=== PATIENT | male | born 1945 | race Two or more races ===

== ENCOUNTER 2017-10-30 09:30 | Inpatient (IN) | payer MEDICARE, MEDICAID ==
[2017-10-23 14:16] LABS: BASOPHILS % (AUTO) 0.5 % (0-1); EOSINOPHILS # (AUTO) 0.1 X10'3 (0-0.9); EOSINOPHILS % (AUTO) 1.7 % (0-6); LYMPHOCYTES # (AUTO) 2.3 X10'3 (1.1-4.8); MEAN CORPUSCULAR HEMOGLOBIN 29.7 PG (27.0-31.0); MEAN CORPUSCULAR HGB CONC 33.4 % (33.0-36.5); MEAN CORPUSCULAR VOLUME 88.9 FL (78-98); MEAN PLATELET VOLUME 8.2 FL (7.4-10.4); MONOCYTES # (AUTO) 0.8 X10'3 (0-0.9); MONOCYTES % (AUTO) 10.8 % (2-12); NEUTROPHILS # (AUTO) 4.1 X10'3 (1.8-7.7); PRE OP PLATELET COUNT 239 X10'3 (140-440); RED BLOOD COUNT 4.39 X10'6 (4.70-6.10); RED CELL DISTRIBUTION WIDTH 14.6 % (11.5-14.5)
[2017-10-23 14:23] LABS: CLARITY,URINE Clear (Clear); COLOR,URINE Yellow (Yellow); GLUCOSE, URINE Negative (Neg); KETONES,URINE Negative (Neg); LEUKOCYTE ESTERASE ,URINE Negative (Neg); NITRITES, URINE Negative (Neg); OCCULT BLOOD,URINE Negative (Neg); PROTEIN,URINE Trace mg/dl (Neg); UROBILINOGEN,URINE 0.2 E.U/dL (0.2-1.0)
[2017-10-23 14:25] LABS: UA COLLECTION TYPE NON-SPECIFIED
[2017-10-23 14:27] LABS: PRE OP PROTIME 9.9 SECONDS (9.0-12.0)
[2017-10-23 14:32] LABS: ALBUMIN/GLOBULIN RATIO 0.6 (1.1-1.5); ALKALINE PHOSPHATASE 102 IU/L (46-116); BLOOD UREA NITROGEN 24 MG/DL (7-18); BUN/CREATININE RATIO 28.9 (5.4-32.0); CALCIUM 8.7 MG/DL (8.5-10.1); CHLORIDE 104 MMOL/L (99-107); CREATININE 0.83 MG/DL (0.60-1.10); PRE OP ALT 20 U/L (30-65); PRE OP ANION GAP 7 (8-16); PRE OP AST 16 U/L (10-37); PRE OP BILIRUB, TOTAL 0.1 MG/DL (0.0-1.0); PRE OP GLUCOSE 107 MG/DL (70-104); PRE OP POTASSIUM 3.9 MMOL/L (3.4-5.1); PRE OP SODIUM 136 MMOL/L (135-145); TOTAL CARBON DIOXIDE 25.3 MMOL/L (24-32); TOTAL PROTEIN 7.8 G/DL (6.4-8.2); eGFR > 90 ML/MIN
[2017-10-23 14:55] LABS: SQUAMOUS EPITHELIAL CELL,UR FEW /LPF (FEW); URIC ACID CRYSTALS FEW /HPF (NEGATIVE)
[2017-10-23 14:57] LABS: BACTERIA,URINE NONE SEEN /HPF (Neg); RBC,URINE NONE SEEN /HPF (0-2); WBC,URINE 0-4 /HPF (0-4)
[~2017-10-30] VITALS: Ht 172.7 cm; Wt 97.2 kg
[~2017-10-30 09:30] MED LIST: ASPI-529 PO; CELE-85 PO; FLO0.4C PO; HYDR-3965 PO; OMEP20TA5 PO
[2017-11-01] VITALS (19 sets, daily range): BP systolic 106–152; BP diastolic 56–93
[2017-11-01] MEDS ORDERED: ringers solution, lacted 1,000 ML IV SCH ×2 (05:00→17:33)
[2017-11-01] MEDS ORDERED: Cefazolin 2GM/50ML dext iso,osmotic IVPB IV ONE (05:30)
[2017-11-01] MEDS ORDERED: acetaminophen 325mg tablet PO ONE (05:30)
[2017-11-01] MEDS ORDERED: famotidine 20mg tablet PO ONE (05:30)
[2017-11-01] MEDS ORDERED: metoclopramide 5 mg/ml inj IV ONE (05:30)
[2017-11-01] MEDS ORDERED: celeCOXIB 100mg capsule PO ONE (05:30)
[2017-11-01] MEDS ORDERED: oxyCODONE SR 10mg (sust. release) tab PO ONE (05:30)
[2017-11-01] MEDS ORDERED: gabapentin 300mg capsule PO ONE (05:30)
[2017-11-01] MEDS ORDERED: vancomycin inj 1,500 MG in normal saline 300ml IV soln IV ONE (05:30)
[2017-11-01] MEDS ORDERED: tranexamic acid inj. 1,000 MG in normal saline 100ml IV soln 90 ML IV ONE (05:30)
[2017-11-01] MEDS ORDERED: acetaminophen 325mg tablet PO PRN (07:20)
[2017-11-01] MEDS ORDERED: oxyCODONE IR 5mg (immed. release) tablet PO PRN (07:20)
[2017-11-01] MEDS ORDERED: diphenhydrAMINE 25mg capsule PO PRN ×2 (07:20)
[2017-11-01] MEDS ORDERED: HYDROmorphone inj. 0.5 MG/0.5 ML DISP.SYRIN IV PRN ×4 (07:20→17:35)
[2017-11-01] MEDS ORDERED: bisacodyl 10mg suppository rectal RC PRN (07:20)
[2017-11-01] MEDS ORDERED: magnesium hydroxide 30ml (MOM) UD suspension PO PRN (07:20)
[2017-11-01] MEDS: aspirin 325mg tablet PO SCH (08:30)
[2017-11-01] MEDS ORDERED: heparin 10,000 units/1 ML INJ ONE (11:08)
[2017-11-01] MEDS ORDERED: ketorolac trometh. 30mg/ml inj. ONE (11:08)
[2017-11-01] MEDS ORDERED: vancomycin 1,000mg inj ONE (11:08)
[2017-11-01] MEDS ORDERED: glycopyrrolate 0.2mg/ml inj ONE (12:32)
[2017-11-01] MEDS ORDERED: sevoflurane 250ml liquid IH ONE (12:32)
[2017-11-01] MEDS ORDERED: ondansetron/PF 4mg/2ml inj ONE (12:32)
[2017-11-01] MEDS ORDERED: diphenhydrAMINE 50 mg/ml inj ONE (12:32)
[2017-11-01] MEDS ORDERED: tetracaine 1% (10mg/ml) pres. free inj. ONE (12:35)
[2017-11-01] MEDS ORDERED: fentaNYL/PF 50MCG/1 ML 2ML syringe ONE (12:38)
[2017-11-01] MEDS ORDERED: morphine /PF 1mg/ml 10ml inj. ONE (12:38)
[2017-11-01] MEDS ORDERED: MIDAZolam 5mg/5ml vial ONE (12:40)
[2017-11-01] MEDS ORDERED: epiNEPHrine 1 mg/ml inj ONE (13:13)
[2017-11-01] MEDS ORDERED: ROPIVAcaine 0.5% (5mg/ml) 30ml vial ONE ×2 (13:13→13:41)
[2017-11-01] MEDS ORDERED: cloNIDine hcl/PF 100mcg/ml inj ONE (13:13)
[2017-11-01] MEDS ORDERED: BUPIVAcaine/PF 2.5mg/ml (0.25%) 10ml vial ONE (13:37)
[2017-11-01] MEDS ORDERED: furosemide 40mg/4ml inj ONE (15:16)
[2017-11-01] MEDS ORDERED: propofol inj 40 ML IV ONE (15:17)
[2017-11-01] MEDS ORDERED: LIDOcaine 1%/PF 5ML 10 MG/ML VIAL ONE (15:17)
[2017-11-01] MEDS ORDERED: gelatin sponge, absorbable (Gelfoam 100) sponge TP ONE (16:00)
[2017-11-01] MEDS ORDERED: ceFAZolin 1000mg inj ONE (16:38)
[2017-11-01] MEDS ORDERED: naloxone 2mg/2ml inj 2 MG in normal saline 500ml IV soln 500 ML IV PRN (17:33)
[2017-11-01] MEDS ORDERED: diphenhydrAMINE 50 mg/ml inj IV PRN (17:35)
[2017-11-01] MEDS ORDERED: morphine 4 MG/ML inj SYRINge IV PRN (17:35)
[2017-11-01] MEDS ORDERED: ondansetron/PF 4mg/2ml inj IV PRN ×2 (17:35)
[2017-11-01 17:45] LABS: ISTAT ANION GAP 11 (8-12); ISTAT BUN 21 mg/dL (6-19); ISTAT CL 103 mmol/L (99-107); ISTAT CREATININE 0.8 mg/dL (0.8-1.3); ISTAT GLUCOSE 88 mg/dL (70-104); ISTAT HGB 11.6 g/dl (14.0-18.0); ISTAT Hct 34 %PCV (42-52); ISTAT K 4.7 mmol/L (3.5-5.1); ISTAT NA 141 mmol/L (135-145); ISTAT TOTAL CO2 27 mmol/L (24-32); ISTAT eGFR > 90 ML/MIN; POC BUN/CREATININE RATIO 26.3 (5.4-32.0)
[2017-11-01] MEDS: potassium cl 20mEq in 1/2 NS 1,000 ML IV SCH ×2 (20:25→23:16)
[2017-11-01] MEDS: acetaminophen 325mg tablet PO SCH (20:27)
[2017-11-01] MEDS: oxyCODONE IR 5mg (immed. release) tablet PO PRN (20:27)
[2017-11-01] MEDS: gabapentin 300mg capsule PO SCH (20:28)
[2017-11-01] MEDS: ascorbic acid 500mg tablet PO SCH (20:28)
[2017-11-01] MEDS: sennosides 8.6mg tablet PO SCH (20:29)
[2017-11-01] MEDS: multivitamins, therapeutics tablet PO SCH (21:27)
[2017-11-01] MEDS: cefazolin/dext.iso 2gm/50ml 50 ML IV SCH ×3 (21:28→23:46)
[2017-11-02] MEDS: acetaminophen 325mg tablet PO SCH ×4 (01:48→19:31)
[2017-11-02 02:30] VITALS: BP 105/52
[2017-11-02 05:20] LABS: BASOPHILS % (AUTO) 0.4 % (0-1); EOSINOPHILS # (AUTO) 0.2 X10'3 (0-0.9); EOSINOPHILS % (AUTO) 1.6 % (0-6); HEMATOCRIT 29.8 % (42.0-52.0); HEMOGLOBIN 9.9 g/dl (14.0-17.9); LYMPHOCYTES # (AUTO) 1.3 X10'3 (1.1-4.8); LYMPHOCYTES % (AUTO) 12.6 % (21-51); MEAN CORPUSCULAR HEMOGLOBIN 29.9 PG (27.0-31.0); MEAN CORPUSCULAR HGB CONC 33.4 % (33.0-36.5); MEAN CORPUSCULAR VOLUME 89.6 FL (78-98); MEAN PLATELET VOLUME 8.3 FL (7.4-10.4); MONOCYTES # (AUTO) 0.8 X10'3 (0-0.9); MONOCYTES % (AUTO) 7.7 % (2-12); NEUTROPHILS # (AUTO) 7.9 X10'3 (1.8-7.7); NEUTROPHILS % (AUTO) 77.7 % (42-75); PLATELET COUNT 173 X10'3 (140-440); RED BLOOD COUNT 3.32 X10'6 (4.70-6.10); RED CELL DISTRIBUTION WIDTH 14.5 % (11.5-14.5); WHITE BLOOD COUNT 10.1 X10'3 (4.5-11.0)
[2017-11-02] MEDS: oxyCODONE IR 5mg (immed. release) tablet PO PRN ×4 (05:20→17:25)
[2017-11-02 05:46] LABS: ANION GAP 5 (8-16); CHLORIDE 105 MMOL/L (99-107); POTASSIUM 4.6 MMOL/L (3.5-5.1); SODIUM 136 MMOL/L (135-145); TOTAL CARBON DIOXIDE 25.9 MMOL/L (24-32)
[2017-11-02 06:00] VITALS: BP 106/51
[2017-11-02] MEDS: tamsulosin 0.4mg capsule PO SCH (07:30)
[2017-11-02] MEDS: potassium cl 20mEq in 1/2 NS 1,000 ML IV SCH ×2 (07:30→15:16)
[2017-11-02] MEDS: cefazolin/dext.iso 2gm/50ml 50 ML IV SCH (07:30)
[2017-11-02] MEDS: ascorbic acid 500mg tablet PO SCH ×2 (07:30→19:31)
[2017-11-02] MEDS: pantoprazole 40mg Tablet.DR PO SCH (07:30)
[2017-11-02] MEDS: multivitamins, therapeutics tablet PO SCH (07:31)
[2017-11-02] MEDS: gabapentin 300mg capsule PO SCH ×3 (07:31→21:19)
[2017-11-02] MEDS: aspirin 325mg tablet PO SCH (07:32)
[2017-11-02 10:02] VITALS: BP 97/49
[2017-11-02] MEDS ORDERED: HYDROmorphone 1 mg/ml syringe ONE (10:09)
[2017-11-02] MEDS: mag hydrox/Alum hydrox/simeth 30ml oral suspension PO PRN (11:48)
[2017-11-02 14:00] VITALS: BP 110/47
[2017-11-02 18:00] VITALS: BP 119/53
[2017-11-02] MEDS: sennosides 8.6mg tablet PO SCH (21:19)
[2017-11-02 22:00] VITALS: BP 134/35
[2017-11-03] MEDS: acetaminophen 325mg tablet PO SCH (02:44)
[2017-11-03 05:46] LABS: BASOPHILS % (AUTO) 0.3 % (0-1); EOSINOPHILS # (AUTO) 0.2 X10'3 (0-0.9); EOSINOPHILS % (AUTO) 1.9 % (0-6); HEMATOCRIT 29.2 % (42.0-52.0); HEMOGLOBIN 9.9 g/dl (14.0-17.9); LYMPHOCYTES # (AUTO) 1.4 X10'3 (1.1-4.8); LYMPHOCYTES % (AUTO) 15.4 % (21-51); MEAN CORPUSCULAR HEMOGLOBIN 30.3 PG (27.0-31.0); MEAN CORPUSCULAR HGB CONC 33.8 % (33.0-36.5); MEAN CORPUSCULAR VOLUME 89.7 FL (78-98); MEAN PLATELET VOLUME 8.8 FL (7.4-10.4); MONOCYTES # (AUTO) 0.9 X10'3 (0-0.9); MONOCYTES % (AUTO) 9.8 % (2-12); NEUTROPHILS # (AUTO) 6.3 X10'3 (1.8-7.7); NEUTROPHILS % (AUTO) 72.6 % (42-75); PLATELET COUNT 165 X10'3 (140-440); RED BLOOD COUNT 3.25 X10'6 (4.70-6.10); WHITE BLOOD COUNT 8.8 X10'3 (4.5-11.0)
[2017-11-03 06:00] VITALS: BP 116/57
[2017-11-03] MEDS: oxyCODONE IR 5mg (immed. release) tablet PO PRN ×3 (06:05→15:32)
[2017-11-03] MEDS: gabapentin 300mg capsule PO SCH ×3 (07:11→20:39)
[2017-11-03] MEDS: tamsulosin 0.4mg capsule PO SCH (07:11)
[2017-11-03] MEDS: pantoprazole 40mg Tablet.DR PO SCH (07:11)
[2017-11-03] MEDS: ascorbic acid 500mg tablet PO SCH ×2 (07:12→20:40)
[2017-11-03] MEDS: aspirin 325mg tablet PO SCH (07:12)
[2017-11-03] MEDS: multivitamins, therapeutics tablet PO SCH (07:12)
[2017-11-03 10:20] VITALS: BP 121/61
[2017-11-03] MEDS: ondansetron/PF 4mg/2ml inj IV PRN (10:27)
[2017-11-03] MEDS ORDERED: ASPI-1 PO (12:17)
[2017-11-03 18:00] VITALS: BP 128/66
[2017-11-03] MEDS: sennosides 8.6mg tablet PO SCH (20:39)
[2017-11-03 22:00] VITALS: BP 127/61
[2017-11-04] MEDS: oxyCODONE IR 5mg (immed. release) tablet PO PRN (04:17)
[2017-11-04] MEDS: mag hydrox/Alum hydrox/simeth 30ml oral suspension PO PRN (05:35)
[2017-11-04 05:44] LABS: BASOPHILS % (AUTO) 0.3 % (0-1); EOSINOPHILS # (AUTO) 0.2 X10'3 (0-0.9); EOSINOPHILS % (AUTO) 1.5 % (0-6); HEMATOCRIT 28.6 % (42.0-52.0); HEMOGLOBIN 9.5 g/dl (14.0-17.9); LYMPHOCYTES # (AUTO) 1.7 X10'3 (1.1-4.8); MEAN CORPUSCULAR HEMOGLOBIN 29.9 PG (27.0-31.0); MEAN CORPUSCULAR HGB CONC 33.1 % (33.0-36.5); MEAN CORPUSCULAR VOLUME 90.1 FL (78-98); MONOCYTES # (AUTO) 1.1 X10'3 (0-0.9); MONOCYTES % (AUTO) 10.9 % (2-12); NEUTROPHILS # (AUTO) 7.2 X10'3 (1.8-7.7); NEUTROPHILS % (AUTO) 70.3 % (42-75); PLATELET COUNT 161 X10'3 (140-440); RED BLOOD COUNT 3.17 X10'6 (4.70-6.10); RED CELL DISTRIBUTION WIDTH 13.9 % (11.5-14.5); WHITE BLOOD COUNT 10.2 X10'3 (4.5-11.0)
[2017-11-04 06:00] VITALS: BP 120/53
[2017-11-04] MEDS: ondansetron/PF 4mg/2ml inj IV PRN (06:44)
[2017-11-04] MEDS: aspirin 325mg tablet PO SCH (07:55)
[2017-11-04] MEDS: tamsulosin 0.4mg capsule PO SCH (07:55)
[2017-11-04] MEDS: multivitamins, therapeutics tablet PO SCH (07:55)
[2017-11-04] MEDS: gabapentin 300mg capsule PO SCH (07:55)
[2017-11-04] MEDS: pantoprazole 40mg Tablet.DR PO SCH (07:55)
[2017-11-04] MEDS: ascorbic acid 500mg tablet PO SCH (07:55)
== END 2017-11-04 10:22 | disposition home or self-care (01) | DRG 467 ==
LOC: EDSTATUS 09:30 → PAS IN 11-01 09:43 → EDSTATUS 11-01 13:15 → ORTHO 4S 11-01 18:41
PROVIDERS: ADMIT Orthopaedic Surgery; ATTEND Orthopaedic Surgery
PROC: 0SPB08Z Removal of Spacer from Left Hip Joint, Open Approach (ICD-10-PCS; 2017-11-01)
PROC: 0SRB069 Replacement of Left Hip Joint with Oxidized Zirconium on Polyethylene Synthetic Substitute, Cemented, Open Approach (ICD-10-PCS; principal; 2017-11-01 12:32)
DX: T84.52XA Infection and inflammatory reaction due to internal left hip prosthesis, initial encounter (principal); D62 Acute posthemorrhagic anemia; K21.9 Gastro-esophageal reflux disease without esophagitis; N40.0 Benign prostatic hyperplasia without lower urinary tract symptoms; M27.3 Alveolitis of jaws; G89.4 Chronic pain syndrome; E66.8 Other obesity; Y83.1 Surgical operation with implant of artificial internal device as the cause of abnormal reaction of the patient, or of later complication, without mention of misadventure at the time of the procedure; Z89.622 Acquired absence of left hip joint; Z79.82 Long term (current) use of aspirin; Z79.899 Other long term (current) drug therapy; T84.05 Periprosthetic osteolysis of internal prosthetic joint; Z68.32 Body mass index [BMI] 32.0-32.9, adult; Y92.89 Other specified places as the place of occurrence of the external cause
CPT/HCPCS: 36415; 71046; 72170; 80047; 80051; 80053; 81001; 85025; 85610; 85730; 86885; 86900; 86901; 87070; 87075; 93005; 97110; 97116; 97161; 97530; A4615; A6257; A6258; A7000; A9272; C1713; C1758; C1776; J0171; J0690; J0735; J1170; J1200; J1644; J1885; J1940; J2001; J2250; J2270; J2274; J2405; J2704; J2765; J2795; J3010; J3370; J3490; J7030; J7120

== ENCOUNTER 2025-02-25 10:07 | Emergency (ER) | payer MEDICARE, MEDICAID ==
[~2025-02-25] VITALS: Ht 172.7 cm; Wt 97.0 kg
[~2025-02-25 10:07] MED LIST changes: +ASPI-1 PO; -ASPI-529 PO; +CELE-127 PO; -CELE-85 PO; -FLO0.4C PO; +OMEP20TA43 PO; -OMEP20TA5 PO; +TAMS-55 PO
[2025-02-25 10:11] VITALS: TEMP 98
--- NOTE | 2025-02-25 10:49 | RADIOLOGY REPORT ---
CLINICAL INDICATION: RIGHT HIP PAIN TECHNIQUE: 1 radiographic views of the pelvis and 2 views of the bilateral hips were obtained. Comparison: None FINDINGS/IMPRESSION: Status post bilateral hip arthroplasty. Age indeterminate right greater trochanteric fracture.
[2025-02-25] MEDS ORDERED: ketorolac trometh 30MG/ML vial 30 MG/ML VIAL IM ONE (10:55)
--- NOTE | 2025-02-25 10:58 | Physician Documentation ---
History of Present Illness ~ Chief Complaint: Hip pain Stated Complaint: R HIP PAIN Time Seen by MD: 10:22 HPI 79-year-old male presents to the ED with a complaint of right hip pain. States that he was working turned wrong and felt severe right hip pain. It is incidentally, the patient is postoperative with a orthopedic implant on the affected hip. This was done in 2003. States that he now requires a cane to walk as it is painful for him to bear weight. Denies any falls denies numbness tingling incontinence states he does have chronic back pain. Denies any head strike Day of Onset: Feb 25, 2025 Medication Reconciliation Allergies: Coded Allergies: No Known Allergies (Unverified , 02/25/25) Scheduled Aspirin (Aspirin), 325 MG PO Q24H@0830 Celecoxib (Celecoxib), 1 CAP PO DAILY, (Reported) Omeprazole (Omeprazole), 20 MG PO BID, (Reported) Tamsulosin Hcl* (Flomax*), 1 CAP PO DAILY, (Reported) Scheduled PRN Hydrocodone Bit/Acetaminophen 5/325 MG (Cheyney 5/325 MG), 1 TABLET PO BID PRN for moderate or severe pain, (Reported) Hydrocodone Bit/Acetaminophen 5/325 MG ([place]yney 5/325 MG), 1 TAB PO Q6H PRN for pain Past Medical History Past Medical History: Chronic Pain Past Surgical History: orthopedic surgeries Alcohol Use: None Drug Use: none Lives with: Family Lives In: Home Review of Systems All Other Systems at this time: Reviewed and Negative ROS As stated above in the HPI, otherwise all systems are reviewed and negative. Physical Exam Vital Signs: Temperature: 98.0, Source: Oral, Heart Rate: 52, Respiratory Rate: 18, BP: 119/63, Pulse Oximetry: 97, Weight: 97.000 Oxygen Flow Rate: 0 Physical Exam General: Alert, no apparent distress. Respiratory: Lungs clear, no respiratory distress. Cardiovascular: Regular rate and rhythm, no murmurs. Extremities: Normal range of motion, no deformity. point tenderness right hip, unable to bear weight Neurologic: Oriented x4. Psychiatric: Normal mood and affect. Skin: Normal color, warm and dry. No edema, no ecchymosis. Progress Results/Orders Results/Orders Completed Orders - HAYDEN RODRIGUEZ NP Hydrocodone/Apap 10/325 (Cheyney 10/325mg (02/25/25 10:55) Ketorolac Trometh 15mg/Ml Vial (Toradol (02/25/25 11:00) Medications Received in ER Medications (Trade) Dose Ordered Sig/Chetna Route PRN Reason Start Time Stop Time Status Last Admin Dose Admin (Cheyney 10/325mg tab) 1 tab ONCE ONCE PO 02/25/25 10:55 02/25/25 10:56 DC 02/25/25 11:40 1 TAB (Toradol injection) 15 mg ONCE ONCE IM 02/25/25 11:00 02/25/25 11:01 DC 02/25/25 11:45 15 MG Vital Signs 02/25/25 02/25/25 10:11 12:14 Temp 98.0 Pulse 52 40 Resp 18 18 B/P (MAP) 119/63 117/60 Pulse Ox 97 96 O2 Flow Rate 0 Medical Decision Making Additional information obtaine: old records Findings Patient's injury is concerning for an acute fracture just lateral to the orthopedic hardware in his right hip. consulting with Dr. Bautista of the on-call orthopedist for recommendations Dr. Bautista essentially recommended crutches and pain medication as this is not a surgical condition. I am recommending physical therapy and follow up with the primary care Differential Dx:Considerations: Include: Avascular necrosis, Arthritis, Arthritis-Rheumatoid, Arthritis-Septic, Bursitis, Contusion, Dislocation, DJD, Fracture-femur, Fracture-hip, Fracture-open, Fracture-pelvis, Gout, Hernia, [id number] dz., Neurovascular injury, Slip capital femoral epip, Sprain, Transient synovitis, Other Departure Disposition: 01 HOME / SELF CARE / HOMELESS Impression: Primary Impression: Fracture of femur Condition: Stable Discharge Instructions: Hip Fracture Additional Instructions: Need to follow up with the primary care for further evaluation and a likely physical therapy referral and further pain medication management Referrals: NO PRIMARY CARE PROVIDER (PCP) Prescriptions Hydrocodone Bit/Acetaminophen 5/325 MG ([place] 5/325 MG) 5 Mg/325 Mg Tablet 1 TAB PO Q6H PRN for pain, #14 TAB Prov: HAYDEN RODRIGUEZ [employer]TER 02/25/25 Education Educated: Patient Educated regarding: diagnosis Signature Scribe Signature: y Attestation: Scribed for Hayden Rodriguez [employer] Flight [employer] by Hayden Rodriguez - [place] . 02/25/25 18:12 HAYDEN RODRIGUEZ NP Feb 25, 2025 10:58
[2025-02-25] MEDS: HYDROcodone/acetaminophen 10/325mg tab PO ONE (11:40)
[2025-02-25] MEDS: ketorolac trometh 15mg/ml vial 15 MG/ML ML IM ONE (11:45)
[2025-02-25] MEDS ORDERED: HYDR-3965 PO (11:49)
[2025-02-25 12:14] VITALS: BP 117/60; PULSE 40; RESP 18; O2SAT 96
== END 2025-02-25 12:15 | disposition home or self-care (01) ==
LOC: ER 10:09
DX: S72.8X1A Other fracture of right femur, initial encounter for closed fracture (principal); G89.29 Other chronic pain; Z79.82 Long term (current) use of aspirin; Z79.899 Other long term (current) drug therapy; Z98.890 Other specified postprocedural states; X58.XXXA Exposure to other specified factors, initial encounter; Y93.89 Activity, other specified; Y92.89 Other specified places as the place of occurrence of the external cause; Y99.8 Other external cause status
CPT/HCPCS: 73502; 96372; 99283; J1885